=== PATIENT | male | born 1965 | race Hispanic/Latino ===

== ENCOUNTER → 2021-07-26 | Day surgery (SDC) | payer BC ==
[~2021-07-26] MED LIST: FENTANYL CITRATE/PF 100MCG/2 ML INJ ONE; LIDOCAINE HCL 2% LOCAL INJ 5 ML SDV VIAL INJ ONE; METOCLOPRAMIDE HCL 10 MG/2ML VIAL ONE; MIDAZOLAM HCL 2 MG/2 ML VIAL ONE; PROPOFOL IV EMULSION 10 MG/ML 20 ML VIAL ONE; PROTONIX20 MG PO; SUCRALFATE1 GM PO
[2021-07-26 14:05] VITALS: BP 115/81
[2021-07-31 15:10] LABS: ENDOMYSIAL ANTIBODIES, IGA Negative (Negative)
== END | disposition home or self-care (01) ==
LOC: OR 11:56
PROVIDERS: ATTEND Internal Medicine Gastroenterology
DX: K21.9 Gastro-esophageal reflux disease without esophagitis (principal); K29.60 Other gastritis without bleeding; K20.90 Esophagitis, unspecified without bleeding; Z71.3 Dietary counseling and surveillance; Z01.810 Encounter for preprocedural cardiovascular examination; Z01.812 Encounter for preprocedural laboratory examination; Z68.34 Body mass index [BMI] 34.0-34.9, adult; Z86.16 Personal history of COVID-19
CPT/HCPCS: 0223U; 36415; 43239; 82784; 83516; 86256; 93005; C9113; J2001; J2250; J2704; J2765; J3010